=== PATIENT | male | born 1990 | race Caucasian/White ===

== ENCOUNTER 2017-02-05 18:32 | Emergency (ER) | payer OTHER ==
[~2017-02-05] VITALS: Wt 54.4 kg
[~2017-02-05 18:32] MED LIST: AMOXICILLIN500 M2 PO; AMOXICILLIN500 MG PO; ANAPROX DS550 MG PO; BACTRIM DS 8001 TA1 PO; CLINDAMYCIN HC300 MG PO; HYDROCODONE BIT1 T11 PO; KEFLEX500 MG PO; LIDOCAINE VISC100 ML MM; MEDROL DOSEPAK4 MG PO; MOTRIN800 MG PO; Motrin,Rufen800 MG PO; NAPROSYN500 MG PO; PEN-VEE K500 MG PO; PENICILLIN VK500 MG PO; PENICILLIN-VK500 MG PO; PREVACID SOLUTA30 MG PO; Peridex 473 ML473 ML PO; REMERON15 MG PO; ULTRAM50 MG PO; VALIUM10 MG PO; VICODIN 5/500 505 MG PO; VICODIN 500 MG-1 TAB PO; ZOFRAN ODT4 MG SL
[2017-02-05 18:58] VITALS: BP 114/82
[2017-02-05 19:52] LABS: BASO % 0.2 % (0.0-1.0); EOS % 0.3 % (1.0-4.0); HEMATOCRIT 46.3 % (42.0-52.0); HEMOGLOBIN 15.8 g/dl (14.0-18.0); LYMPH # 1.5 10*3/uL (1.3-4.4); MEAN CORPUSCULAR HGB 31.7 pg (27.0-31.0); MEAN CORPUSCULAR HGB CONC 34.1 g/dl (33.0-37.0); MEAN PLATELET VOLUME 11.9 fl (9.6-12.3); MONO # 0.9 10*3/uL (0.1-1.0); MONO % 6.6 % (3.0-9.0); NEUT % 81.7 % (47.0-73.0); PLATELET COUNT AUTOMATED 189 10*3/uL (130-400); RED BLOOD COUNT 4.98 10*6/uL (4.50-5.90); WHITE BLOOD COUNT 13.4 10*3/uL (4.8-10.8)
[2017-02-05 20:07] LABS: ALBUMIN 4.5 gm/dl (3.1-4.5); ALKALINE PHOSPHATASE 104 U/L (45-117); BUN 13 mg/dl (7-24); CHLORIDE 102 mmol/L (98-107); CREATININE 0.96 mg/dL (0.70-1.30); POTASSIUM 4.1 mmol/L (3.5-5.1); SGOT/AST 16 IU/L (3-35); SGPT/ALT 19 U/L (12-78); SODIUM 137 mmol/L (136-145); TOTAL PROTEIN 8.9 gm/dL (6.4-8.2)
[2017-02-05] MEDS ORDERED: Bactrim DS PO (20:15)
[2017-02-05] MEDS ORDERED: KEFLEX500 M1 PO (20:15)
[2017-02-05] MEDS ORDERED: NAPROSYN500 MG PO (20:15)
== END 2017-02-05 20:22 | disposition home or self-care (01) ==
LOC: ED 18:32
PROVIDERS: Nurse Practitioner Family
DX: L02.612 Cutaneous abscess of left foot (principal); E87.1 Hypo-osmolality and hyponatremia; F17.200 Nicotine dependence, unspecified, uncomplicated; F10.10 Alcohol abuse, uncomplicated; Z88.8 Allergy status to other drugs, medicaments and biological substances

== ENCOUNTER 2017-05-29 21:04 | Emergency (ER) | payer OTHER ==
[~2017-05-29] VITALS: Ht 172.7 cm; Wt 52.2 kg
[~2017-05-29 21:04] MED LIST changes: +Bactrim DS PO; +KEFLEX500 M1 PO
[2017-05-29 21:54] LABS: BASO % 0.2 % (0.0-1.0); EOS # 0.1 10*3/uL (0.0-0.4); EOS % 0.6 % (1.0-4.0); HEMATOCRIT 46.6 % (42.0-52.0); HEMOGLOBIN 15.6 g/dl (14.0-18.0); LYMPH # 1.5 10*3/uL (1.3-4.4); LYMPH % 15.8 % (27.0-41.0); MEAN CELL VOLUME 92.6 fl (80.0-94.0); MEAN CORPUSCULAR HGB CONC 33.5 g/dl (33.0-37.0); MEAN PLATELET VOLUME 11.4 fl (9.6-12.3); MONO # 0.9 10*3/uL (0.1-1.0); MONO % 9.2 % (3.0-9.0); NEUT # 7.2 10*3/uL (2.3-7.9); NEUT % 73.9 % (47.0-73.0); PLATELET COUNT AUTOMATED 209 10*3/uL (130-400); RED BLOOD COUNT 5.03 10*6/uL (4.50-5.90); RED CELL DISTRI WIDTH 13.8 % (0-14.5); WHITE BLOOD COUNT 9.7 10*3/uL (4.8-10.8)
[2017-05-29 22:29] LABS: ALKALINE PHOSPHATASE 100 U/L (45-117); BUN 10 mg/dl (7-24); CHLORIDE 103 mmol/L (98-107); CREATININE 0.97 mg/dL (0.70-1.30); POTASSIUM 3.8 mmol/L (3.5-5.1); SGOT/AST 20 IU/L (3-35); SGPT/ALT 24 U/L (12-78); SODIUM 139 mmol/L (136-145); TOTAL PROTEIN 8.2 gm/dL (6.4-8.2)
[2017-05-29 22:31] LABS: TROPONIN I < 0.015 ng/ml (<0.045)
[2017-05-29 23:22] VITALS: BP 138/76
== END 2017-05-30 01:07 | disposition left against medical advice (07) ==
LOC: ED 21:04
PROVIDERS: Nurse Practitioner Family
DX: M27.2 Inflammatory conditions of jaws (principal); R50.9 Fever, unspecified; F17.200 Nicotine dependence, unspecified, uncomplicated

== ENCOUNTER 2019-05-17 16:07 | Emergency (ER) | payer OTHER ==
[~2019-05-17] VITALS: Ht 167.6 cm; Wt 54.4 kg
[2019-05-17 17:09] LABS: URINE AMPHETAMINES < 1000 (1000ng/ml); URINE BARBITURATES < 200 (200ng/ml); URINE BENZODIAZEPINES > 200 (200ng/ml); URINE CANNABINOIDS (THC) > 50 (50ng/ml); URINE COCAINE < 300 (300ng/ml); URINE METHADONE < 300 (300ng/ml); URINE OPIATES < 300 (300ng/ml)
[2019-05-17 17:13] LABS: BASO % 0.2 % (0.0-1.0); EOS % 0.1 % (1.0-4.0); HEMATOCRIT 48.5 % (42.0-52.0); HEMOGLOBIN 16.6 g/dl (14.0-18.0); LYMPH # 1.4 10*3/uL (1.3-4.4); MEAN CORPUSCULAR HGB 31.5 pg (27.0-31.0); MEAN CORPUSCULAR HGB CONC 34.2 g/dl (33.0-37.0); MONO # 0.8 10*3/uL (0.1-1.0); MONO % 8.7 % (3.0-9.0); NEUT % 75.7 % (47.0-73.0); PLATELET COUNT AUTOMATED 195 10*3/uL (130-400); RED BLOOD COUNT 5.27 10*6/uL (4.50-5.90); RED CELL DISTRI WIDTH 13.3 % (0-14.5); WHITE BLOOD COUNT 9.3 10*3/uL (4.8-10.8)
[2019-05-17 17:13] LABS: URINE PHENCYCLIDINE < 25 (25ng/ml)
[2019-05-17 17:14] LABS: ALBUMIN 4.9 gm/dl (3.1-4.5); ALKALINE PHOSPHATASE 88 U/L (45-117); BUN 11 mg/dl (7-24); CHLORIDE 102 mmol/L (98-107); CREATININE 1.04 mg/dL (0.70-1.30); LIPASE 54 U/L (73-393); POTASSIUM 3.7 mmol/L (3.5-5.1); SGOT/AST 52 IU/L (3-35); SGPT/ALT 43 U/L (12-78); SODIUM 135 mmol/L (136-145); TOTAL PROTEIN 8.2 gm/dL (6.4-8.2)
[2019-05-17 17:17] LABS: BILIRUBIN 2+ (NEGATIVE); BLOOD TRACE-INTACT (NEGATIVE); CLARITY SL CLOUDY (CLEAR); COLOR YELLOW (YELLOW); GLUCOSE NEGATIVE (NEGATIVE); KETONE 3+ (NEGATIVE); LEUKO ESTERASE NEGATIVE (NEGATIVE); NITRITE NEGATIVE (NEGATIVE); UROBILINOGEN 0.2 E.U./dl (0.2-1.0)
[2019-05-17 17:18] LABS: BACTERIA 2+; MUCOUS 4+; RBC 0-2 rbc/hpf (0-2)
[2019-05-17 17:21] LABS: ACT PARTIAL THROMBO TIME 26.9 SECONDS (20.0-32.1); ETHYL ALCOHOL < 3.0 mg/dl (<3); TROPONIN I < 0.015 ng/ml (<0.045)
[2019-05-17 18:33] VITALS: BP 111/70
[2019-05-17] MEDS ORDERED: PREDNISONE20 M1 PO (18:34)
[2019-05-17] MEDS ORDERED: PROVENTIL HFA6.7 GM INH (18:34)
[2019-05-17] MEDS ORDERED: AVPAK AZITHROM250 MG PO (18:34)
== END 2019-05-17 18:52 | disposition home or self-care (01) ==
LOC: ED 16:07
PROVIDERS: Nurse Practitioner Family
DX: J20.9 Acute bronchitis, unspecified (principal); E86.0 Dehydration; R00.2 Palpitations; F12.90 Cannabis use, unspecified, uncomplicated; F17.200 Nicotine dependence, unspecified, uncomplicated; Z91.048 Other nonmedicinal substance allergy status

== ENCOUNTER 2019-05-24 01:23 | Emergency (ER) | payer OTHER ==
[~2019-05-24] VITALS: Ht 167.6 cm; Wt 54.4 kg
[~2019-05-24 01:23] MED LIST changes: +AVPAK AZITHROM250 MG PO; +PREDNISONE20 M1 PO; +PROVENTIL HFA6.7 GM INH
[2019-05-24 01:31] VITALS: BP 128/66
[2019-05-25] MEDS ORDERED: Motrin,Rufen800 MG PO (08:19)
[2019-05-25] MEDS ORDERED: ATIVAN1 MG PO (08:19)
== END 2019-05-24 02:06 | disposition home or self-care (01) ==
LOC: ED 01:23
DX: J20.9 Acute bronchitis, unspecified (principal); F17.200 Nicotine dependence, unspecified, uncomplicated; Z91.048 Other nonmedicinal substance allergy status; Z79.899 Other long term (current) drug therapy

== ENCOUNTER 2019-05-25 05:42 | Emergency (ER) | payer OTHER ==
[~2019-05-25] VITALS: Ht 167.6 cm; Wt 54.4 kg
[2019-05-25 05:50] VITALS: BP 122/81
[2019-05-25 06:25] LABS: BASO % 0.3 % (0.0-1.0); EOS # 0.1 10*3/uL (0.0-0.4); EOS % 0.8 % (1.0-4.0); HEMATOCRIT 46.6 % (42.0-52.0); HEMOGLOBIN 16.1 g/dl (14.0-18.0); LYMPH # 2.8 10*3/uL (1.3-4.4); LYMPH % 19.1 % (27.0-41.0); MEAN CELL VOLUME 93.8 fl (80.0-94.0); MEAN CORPUSCULAR HGB 32.4 pg (27.0-31.0); MEAN CORPUSCULAR HGB CONC 34.5 g/dl (33.0-37.0); NEUT # 10.6 10*3/uL (2.3-7.9); NEUT % 72.5 % (47.0-73.0); PLATELET COUNT AUTOMATED 189 10*3/uL (130-400); RED BLOOD COUNT 4.97 10*6/uL (4.50-5.90); RED CELL DISTRI WIDTH 13.8 % (0-14.5); WHITE BLOOD COUNT 14.6 10*3/uL (4.8-10.8)
[2019-05-25 06:37] LABS: BUN 6 mg/dl (7-24); CHLORIDE 106 mmol/L (98-107); CREATININE 0.91 mg/dL (0.70-1.30); POTASSIUM 3.5 mmol/L (3.5-5.1); SODIUM 139 mmol/L (136-145)
[2019-05-25 06:38] LABS: ACETAMINOPHEN (TYLENOL) < 5.0 ug/ml (10-30)
[2019-05-25 06:44] LABS: BILIRUBIN NEGATIVE (NEGATIVE); CLARITY SL CLOUDY (CLEAR); COLOR YELLOW (YELLOW); GLUCOSE NEGATIVE (NEGATIVE); KETONE NEGATIVE (NEGATIVE); SPECIFIC GRAVITY 1.015 (1.005-1.030)
[2019-05-25 06:45] LABS: BLOOD NEGATIVE (NEGATIVE); LEUKO ESTERASE NEGATIVE (NEGATIVE); NITRITE NEGATIVE (NEGATIVE); UROBILINOGEN 0.2 E.U./dl (0.2-1.0)
[2019-05-25 06:49] LABS: BACTERIA TRACE; EPITHELIAL CELLS 0-2; WBC 0-2 wbc/hpf (0-5)
[2019-05-25 06:50] LABS: MUCOUS 1+
[2019-05-25 06:55] LABS: URINE AMPHETAMINES < 1000 (1000ng/ml); URINE BARBITURATES < 200 (200ng/ml); URINE BENZODIAZEPINES > 200 (200ng/ml); URINE CANNABINOIDS (THC) > 50 (50ng/ml); URINE COCAINE < 300 (300ng/ml); URINE METHADONE < 300 (300ng/ml)
[2019-05-25 06:57] LABS: URINE OPIATES < 300 (300ng/ml)
[2019-05-25 07:17] LABS: URINE PHENCYCLIDINE < 25 (25ng/ml)
[2019-05-25] MEDS ORDERED: Motrin,Rufen800 MG PO (08:19)
[2019-05-25] MEDS ORDERED: ATIVAN1 MG PO (08:19)
== END 2019-05-25 08:23 | disposition home or self-care (01) ==
LOC: ED 05:42
PROVIDERS: Emergency Medicine
DX: R09.1 Pleurisy (principal); F41.9 Anxiety disorder, unspecified; F32.9 Major depressive disorder, single episode, unspecified; F17.200 Nicotine dependence, unspecified, uncomplicated; Z91.048 Other nonmedicinal substance allergy status; Z79.2 Long term (current) use of antibiotics; Z79.899 Other long term (current) drug therapy

== ENCOUNTER 2019-06-05 15:07 | Emergency (ER) | payer OTHER ==
[~2019-06-05] VITALS: Wt 68.0 kg
[~2019-06-05 15:07] MED LIST changes: +ATIVAN1 MG PO
[2019-06-05 15:19] VITALS: BP 125/100
[2019-06-05 16:11] LABS: BASO % 0.2 % (0.0-1.0); EOS % 0.2 % (1.0-4.0); HEMATOCRIT 45.4 % (42.0-52.0); HEMOGLOBIN 15.3 g/dl (14.0-18.0); LYMPH % 11.8 % (27.0-41.0); MEAN CELL VOLUME 95.6 fl (80.0-94.0); MEAN CORPUSCULAR HGB 32.2 pg (27.0-31.0); MEAN CORPUSCULAR HGB CONC 33.7 g/dl (33.0-37.0); MEAN PLATELET VOLUME 11.1 fl (9.6-12.3); MONO # 0.5 10*3/uL (0.1-1.0); MONO % 5.8 % (3.0-9.0); NEUT % 81.8 % (47.0-73.0); PLATELET COUNT AUTOMATED 164 10*3/uL (130-400); RED BLOOD COUNT 4.75 10*6/uL (4.50-5.90); RED CELL DISTRI WIDTH 14.1 % (0-14.5); WHITE BLOOD COUNT 8.6 10*3/uL (4.8-10.8)
[2019-06-05 16:14] LABS: BILIRUBIN 1+ (NEGATIVE); BLOOD NEGATIVE (NEGATIVE); CLARITY CLEAR (CLEAR); COLOR YELLOW (YELLOW); GLUCOSE NEGATIVE (NEGATIVE); KETONE 2+ (NEGATIVE); LEUKO ESTERASE NEGATIVE (NEGATIVE); NITRITE NEGATIVE (NEGATIVE); UROBILINOGEN 0.2 E.U./dl (0.2-1.0)
[2019-06-05 16:18] LABS: EPITHELIAL CELLS 0-2
[2019-06-05 16:22] LABS: ACT PARTIAL THROMBO TIME 27.6 SECONDS (20.0-32.1)
[2019-06-05 16:25] LABS: ALBUMIN 4.2 gm/dl (3.1-4.5); ALKALINE PHOSPHATASE 88 U/L (45-117); BUN 9 mg/dl (7-24); CHLORIDE 106 mmol/L (98-107); CREATININE 0.91 mg/dL (0.70-1.30); LIPASE 75 U/L (73-393); POTASSIUM 4.1 mmol/L (3.5-5.1); SGOT/AST 34 IU/L (3-35); SGPT/ALT 35 U/L (12-78); SODIUM 139 mmol/L (136-145); TOTAL PROTEIN 7.3 gm/dL (6.4-8.2)
[2019-06-05 16:27] LABS: URINE AMPHETAMINES < 1000 (1000ng/ml); URINE BARBITURATES < 200 (200ng/ml); URINE BENZODIAZEPINES < 200 (200ng/ml); URINE COCAINE < 300 (300ng/ml)
[2019-06-05 16:32] LABS: URINE CANNABINOIDS (THC) > 50 (50ng/ml); URINE METHADONE < 300 (300ng/ml); URINE OPIATES < 300 (300ng/ml)
[2019-06-05 16:38] LABS: ACETAMINOPHEN (TYLENOL) < 5.0 ug/ml (10-30); ETHYL ALCOHOL < 3.0 mg/dl (<3); TROPONIN I < 0.015 ng/ml (<0.045)
[2019-06-05 16:38] LABS: URINE PHENCYCLIDINE < 25 (25ng/ml)
[2019-06-05] MEDS ORDERED: PREDNISONE10 MG PO (18:04)
[2019-06-05] MEDS ORDERED: MUCINEX1200 M1 PO (18:04)
[2019-06-05] MEDS ORDERED: DOXYCYCLINE100 M3 PO (18:04)
== END 2019-06-05 18:13 | disposition home or self-care (01) ==
LOC: ED 15:07
PROVIDERS: Family Medicine
DX: J40 Bronchitis, not specified as acute or chronic (principal); F12.90 Cannabis use, unspecified, uncomplicated; F17.200 Nicotine dependence, unspecified, uncomplicated; Z91.048 Other nonmedicinal substance allergy status; Z79.899 Other long term (current) drug therapy

== ENCOUNTER 2019-06-06 13:00 | Emergency (ER) | payer OTHER ==
[~2019-06-06] VITALS: Ht 167.6 cm; Wt 54.4 kg
[~2019-06-06 13:00] MED LIST changes: +DOXYCYCLINE100 M3 PO; +MUCINEX1200 M1 PO; +PREDNISONE10 MG PO
[2019-06-06 13:34] LABS: BILIRUBIN NEGATIVE (NEGATIVE); BLOOD NEGATIVE (NEGATIVE); CLARITY CLOUDY (CLEAR); COLOR YELLOW (YELLOW); GLUCOSE NEGATIVE (NEGATIVE); KETONE 2+ (NEGATIVE); NITRITE NEGATIVE (NEGATIVE); UROBILINOGEN 0.2 E.U./dl (0.2-1.0)
[2019-06-06 13:35] LABS: LEUKO ESTERASE NEGATIVE (NEGATIVE)
[2019-06-06 13:36] LABS: MUCOUS 2+
[2019-06-06 13:38] LABS: BACTERIA 1+
[2019-06-06 13:53] LABS: BASO % 0.4 % (0.0-1.0); EOS % 0.1 % (1.0-4.0); HEMATOCRIT 47.8 % (42.0-52.0); MEAN CELL VOLUME 95.6 fl (80.0-94.0); MEAN CORPUSCULAR HGB CONC 33.5 g/dl (33.0-37.0); MEAN PLATELET VOLUME 11.2 fl (9.6-12.3); MONO # 0.6 10*3/uL (0.1-1.0); MONO % 5.1 % (3.0-9.0); NEUT # 9.5 10*3/uL (2.3-7.9); NEUT % 85.1 % (47.0-73.0); PLATELET COUNT AUTOMATED 179 10*3/uL (130-400); WHITE BLOOD COUNT 11.2 10*3/uL (4.8-10.8)
[2019-06-06 14:05] LABS: ALBUMIN 4.8 gm/dl (3.1-4.5); ALKALINE PHOSPHATASE 96 U/L (45-117); BUN 11 mg/dl (7-24); CHLORIDE 102 mmol/L (98-107); POTASSIUM 4.3 mmol/L (3.5-5.1); SGOT/AST 34 IU/L (3-35); SGPT/ALT 35 U/L (12-78); SODIUM 135 mmol/L (136-145); TOTAL PROTEIN 8.1 gm/dL (6.4-8.2)
[2019-06-06 16:17] VITALS: BP 116/64
== END 2019-06-06 16:17 | disposition home or self-care (01) ==
LOC: ED 13:00
PROVIDERS: Nurse Practitioner Family
DX: R10.13 Epigastric pain (principal); Z87.891 Personal history of nicotine dependence

== ENCOUNTER 2019-06-15 11:03 | Inpatient (IN) | payer OTHER ==
[~2019-06-15] VITALS: Ht 1737 cm; Wt 49.2 kg
--- NOTE | 2019-06-15 12:25 | NUR ---
PATIENT MEETS [facility]. CIWA =17. PATIENT IS WANTING TO FOLLOW UP WITH [facility] FOR HIS AFTERCARE PLAN. SAMY TINOCO B.A. OIL SPOT WASHER
[2019-06-15 12:33] VITALS: BP 119/82
[2019-06-15 12:42] LABS: BASO # 0.1 10*3/uL (0.0-0.1); BASO % 0.4 % (0.0-1.0); EOS # 0.1 10*3/uL (0.0-0.4); EOS % 0.9 % (1.0-4.0); HEMATOCRIT 45.9 % (42.0-52.0); HEMOGLOBIN 15.5 g/dl (14.0-18.0); LYMPH # 1.9 10*3/uL (1.3-4.4); LYMPH % 15.8 % (27.0-41.0); MEAN CELL VOLUME 96.2 fl (80.0-94.0); MEAN CORPUSCULAR HGB 32.5 pg (27.0-31.0); MEAN CORPUSCULAR HGB CONC 33.8 g/dl (33.0-37.0); MEAN PLATELET VOLUME 10.8 fl (9.6-12.3); MONO # 0.7 10*3/uL (0.1-1.0); MONO % 5.5 % (3.0-9.0); NEUT # 9.1 10*3/uL (2.3-7.9); NEUT % 77.2 % (47.0-73.0); PLATELET COUNT AUTOMATED 187 10*3/uL (130-400); RED BLOOD COUNT 4.77 10*6/uL (4.50-5.90); RED CELL DISTRI WIDTH 14.2 % (0-14.5); WHITE BLOOD COUNT 11.7 10*3/uL (4.8-10.8)
--- NOTE | 2019-06-15 12:44 | NUR ---
[facility] , under the services of MICHAEL Eubanks DO with a diagnosis of SUBSTANCE ABUSE. Chief complaint is DENIES C/O. Patient arrived via bed from CT. Monitor applied. Initial assessment completed. Vital signs taken and recorded. MICHAEL EUBANKS DO notified of admission to the unit. Orders received. See assessment for past medical history, medications and allergies. Patient and/or family oriented to unit. [facility] visitation policy reviewed. Clothing/patient valuable form completed. JACOBO CHAKRABORTY
[2019-06-15 12:52] LABS: INTERNATIONAL NORM RATIO 0.9 (2.0-3.5)
[2019-06-15 12:57] LABS: ALBUMIN 4.3 gm/dl (3.1-4.5); ALKALINE PHOSPHATASE 77 U/L (45-117); BUN 9 mg/dl (7-24); CHLORIDE 106 mmol/L (98-107); CREATININE 0.75 mg/dL (0.70-1.30); SGOT/AST 21 IU/L (3-35); SGPT/ALT 27 U/L (12-78); SODIUM 138 mmol/L (136-145); TOTAL PROTEIN 7.4 gm/dL (6.4-8.2)
[2019-06-15 13:04] LABS: BILIRUBIN NEGATIVE (NEGATIVE); BLOOD NEGATIVE (NEGATIVE); CLARITY SL CLOUDY (CLEAR); COLOR YELLOW (YELLOW); GLUCOSE NEGATIVE (NEGATIVE); KETONE 1+ (NEGATIVE); LEUKO ESTERASE NEGATIVE (NEGATIVE); NITRITE NEGATIVE (NEGATIVE); UROBILINOGEN 0.2 E.U./dl (0.2-1.0)
[2019-06-15 13:10] LABS: URINE AMPHETAMINES < 1000 (1000ng/ml); URINE BARBITURATES < 200 (200ng/ml); URINE BENZODIAZEPINES < 200 (200ng/ml); URINE CANNABINOIDS (THC) > 50 (50ng/ml); URINE COCAINE < 300 (300ng/ml); URINE METHADONE < 300 (300ng/ml); URINE OPIATES < 300 (300ng/ml); URINE PHENCYCLIDINE < 25 (25ng/ml)
[2019-06-15 13:15] LABS: MUCOUS TRACE
[2019-06-15 16:00] VITALS: BP 134/69
[2019-06-15 20:00] VITALS: BP 115/76
--- NOTE | 2019-06-15 20:05 | NUR ---
MEDICATED WITH PRN MOTRIN FOR C/O GENERALIZED PAIN. MEDICATED WITH PRN ATIVAN FOR ANXIOUSNESS. PATIENT WALKING AND PACING AROUND ROOM. STATES HE IS VERY ANXIOUS AND CANNOT SIT STILL. REMINDED TO NOT LEAVE THE FLOOR. BED IN LOWEST POSITION, CALL LIGHT IN REACH
[2019-06-16] VITALS: BP 133/79
[2019-06-16 08:00] VITALS: BP 110/67; BP 124/72
--- NOTE | 2019-06-16 08:10 | NUR ---
NOTIFIED DR. SANTANA OF PT'S HEART RATE.
[2019-06-16 12:00] VITALS: BP 112/76
--- NOTE | 2019-06-16 12:23 | NUR ---
patient is a [facility] for [facility]. he denies any medical needs upon dc.
[2019-06-16 14:00] VITALS: BP 112/76
[2019-06-16 16:00] VITALS: BP 103/69
[2019-06-16 20:00] VITALS: BP 114/80
--- NOTE | 2019-06-16 20:07 | NUR ---
PATIENT IS WALKING AROUND IN ROOM WITH EASY AND REGULAR RESPERS ON ROOM AIR. ASSESSMENT IS COMPLETE WITH NO S/S OF DISTRESS NOTED AT THIS TIME. PATIENT C/O ANXIETY AND IS REQUESTING SOMETHING FOR IT. CALL LIGHT IS WITHIN REACH WILL CONTINUE TO MONITOR.
[2019-06-17] VITALS: BP 126/69
[2019-06-17 08:00] VITALS: BP 127/73
--- NOTE | 2019-06-17 08:24 | NUR ---
MEDICATED WITH ROBAXIN AND ATIVAN PER ORDERS AND REQUEST. PATIENT ANXIOUS PACING.
--- NOTE | 2019-06-17 09:30 | NUR ---
ROBAXIN AND ATIVAN GIVEN EARLIER EFFECTIVE.
[2019-06-17 12:00] VITALS: BP 124/62
[2019-06-17 16:00] VITALS: BP 93/59
--- NOTE | 2019-06-17 19:30 | NUR ---
PT ANXIOUS AND PACING. PT REQUESTING SOMETHING FOR ANXIETY. ASESSMENT COMPLETE. NO OTHER COMPLAINTS AT THIS TIME. CALL LIGHT WITHIN REACH. WILL MEDICATED AND MONITOR.
--- NOTE | 2019-06-17 19:37 | NUR ---
MEDICATED WITH PRN ATIVAN AND ROBAXIN PER ORDERS AND PT REQUEST. WILL CHECK EFFECTIVENESS. CALL LIGHT WITHIN REACH.
[2019-06-17 20:00] VITALS: BP 118/76
--- NOTE | 2019-06-17 20:40 | NUR ---
EARLIER ATIVAN AND AND ROBAXIN EFFECTIVE.
[2019-06-18] VITALS: BP 110/80
--- NOTE | 2019-06-18 01:59 | NUR ---
PATIENT ANXIOUS AND PACING. IV ATIVAN GIVEN PER REQUEST AND PER ORDER. WILL CHECK EFFECTIVENESS. CALL LIGHT WITHIN REACH.
--- NOTE | 2019-06-18 02:17 | NUR ---
PT MEDICATED WITH PRN ROBAXIN PER REQUEST FOR MUSCLE SPASMS. WILL CHECK EFFECTIVENES. CALL LIGHT WITHIN REACH.
--- NOTE | 2019-06-18 03:18 | NUR ---
24 HR chart check completed.
--- NOTE | 2019-06-18 03:22 | NUR ---
EARLIER ATIVAN AND ROBAXIN WERE EFFECTIVE. WILL CONTINUE TO MONITOR.
--- NOTE | 2019-06-18 04:53 | NUR ---
PTS NICOTINE PATCH REMOVED AT THIS TIME. PT STATED IT ISN'T WORKING FOR HIM AND IS REQUESTING IN THE NICOTROL INHALER INSTEAD. EXPLAINED TO PT HE CAN'T HAVE BOTH AND THAT HE NEED TO PICK ONE OR THE OTHER.
--- NOTE | 2019-06-18 07:30 | NUR ---
TOOK OVER CARE OF PT AT THIS TIME.PT RESTING IN BED. RESPRIATIONS EASY AND UNLABORED WITH NO S/S OF DISTRESS NOTED. WILL CONTINUE TO MONITOR. CALL LIGHT IN REACH.
[2019-06-18 08:00] VITALS: BP 123/98
--- NOTE | 2019-06-18 08:41 | NUR ---
PT REFUSING TO WEAR [employer] AT THIS TIME. WILL NOTIFY PHYSICIAN AND [employer] TEACHER TECH.
--- NOTE | 2019-06-18 10:46 | NUR ---
PT CONCERNED ABOUT HIS RIDE HOME VIA INSURANCE. SAMY NISHANT [facility] NOTIFIED AND STATES THAT SHE HAS NOT SET UP THE RIDE YET BUT WHEN SHE DOES, SHE WILL NOTIFY THIS NURSE.
[2019-06-18] MEDS ORDERED: NATURE'S BLEND F1 MG PO (11:20)
[2019-06-18] MEDS ORDERED: ATARAX,VISTARIL50 MG PO (11:20)
[2019-06-18] MEDS ORDERED: VITAMIN B-1100 M1 PO (11:20)
--- NOTE | 2019-06-18 12:10 | NUR ---
Discharge instructions reviewed with patient/family. Patient receptive and verbalizes understanding. Follow-up care arranged. Written instructions given to patient/family. NADIYA ECHOLS
--- NOTE | 2019-06-18 12:18 | NUR ---
Attempted to reach patient with his appt time change for Nancy Damon. Voicemail left.
== END 2019-06-18 12:53 | disposition home or self-care (01) | DRG 775 ==
LOC: 4E 11:03
PROVIDERS: Student in an Organized Health Care Education/Training Program; ADMIT Emergency Medicine
DX: F10.230 Alcohol dependence with withdrawal, uncomplicated (principal); R63.6 Underweight; R00.1 Bradycardia, unspecified; F12.929 Cannabis use, unspecified with intoxication, unspecified; D72.825 Bandemia; D75.89 Other specified diseases of blood and blood-forming organs; R82.4 Acetonuria; F12.90 Cannabis use, unspecified, uncomplicated; F41.9 Anxiety disorder, unspecified; F17.210 Nicotine dependence, cigarettes, uncomplicated; Z71.6 Tobacco abuse counseling; Z81.1 Family history of alcohol abuse and dependence; Z83.79 Family history of other diseases of the digestive system; Z68.1 Body mass index [BMI] 19.9 or less, adult

== ENCOUNTER → 2019-09-13 | Day surgery (SDC) | payer OTHER ==
[~2019-09-13] VITALS: Ht 165.1 cm; Wt 54.4 kg
[~2019-09-13] MED LIST changes: +ATARAX,VISTARIL50 MG PO; +AUGMENTIN 875875 MG PO; +CHANTIX1 M1 PO; +NATURE'S BLEND F1 MG PO; +NORCO 5-325 TA1 EACH PO; +VITAMIN B-1100 M1 PO
[2019-09-13 10:39] LABS: BASO # 0.1 10*3/uL (0.0-0.1); BASO % 0.3 % (0.0-1.0); EOS # 0.1 10*3/uL (0.0-0.4); EOS % 0.5 % (1.0-4.0); LYMPH # 2.1 10*3/uL (1.3-4.4); LYMPH % 13.7 % (27.0-41.0); MEAN CELL VOLUME 91.7 fl (80.0-94.0); MEAN CORPUSCULAR HGB 32.1 pg (27.0-31.0); MONO # 1.1 10*3/uL (0.1-1.0); MONO % 7.4 % (3.0-9.0); NEUT # 11.9 10*3/uL (2.3-7.9); NEUT % 77.8 % (47.0-73.0); PLATELET COUNT AUTOMATED 183 10*3/uL (130-400); RED CELL DISTRI WIDTH 12.6 % (0-14.5); WHITE BLOOD COUNT 15.3 10*3/uL (4.8-10.8)
[2019-09-13 10:54] LABS: BUN 9 mg/dl (7-24); CHLORIDE 103 mmol/L (98-107); CREATININE 0.78 mg/dL (0.70-1.30); POTASSIUM 3.4 mmol/L (3.5-5.1); SODIUM 135 mmol/L (136-145)
[2019-09-13 11:34] VITALS: BP 128/74
--- NOTE | 2019-09-13 11:35 | NUR ---
COVID TEST PER [facility], [id number] EXP 2021-06 BOTH IGG AND IGM NEGATIVE
[2019-09-13 13:45] VITALS: BP 109/62
[2019-09-13 14:00] VITALS: BP 107/61
[2019-09-13 14:17] VITALS: BP 108/61
[2019-09-13 14:31] VITALS: BP 109/62
[2019-09-13 14:44] VITALS: BP 106/68
== END | disposition home or self-care (01) ==
LOC: ED 07:29 → SDC 13:46
PROVIDERS: Emergency Medicine
DX: L02.01 Cutaneous abscess of face (principal); F41.9 Anxiety disorder, unspecified; F32.9 Major depressive disorder, single episode, unspecified; K21.9 Gastro-esophageal reflux disease without esophagitis; Z87.891 Personal history of nicotine dependence

== ENCOUNTER 2019-11-26 08:38 | Emergency (ER) | payer OTHER ==
[~2019-11-26] VITALS: Ht 175.2 cm; Wt 54.4 kg
[2019-11-26 08:44] VITALS: BP 117/77
[2019-11-26] MEDS ORDERED: CLINDAMYCIN150 MG PO (09:14)
== END 2019-11-26 09:16 | disposition home or self-care (01) ==
LOC: ED 08:38
DX: K04.7 Periapical abscess without sinus (principal); F32.9 Major depressive disorder, single episode, unspecified; F41.9 Anxiety disorder, unspecified; F17.200 Nicotine dependence, unspecified, uncomplicated; Z88.8 Allergy status to other drugs, medicaments and biological substances; Z79.899 Other long term (current) drug therapy

== ENCOUNTER 2019-12-11 00:41 | Inpatient (IN) | payer OTHER ==
[~2019-12-11] VITALS: Ht 177.8 cm; Wt 53.2 kg
[2019-12-11] VITALS (7 sets, daily range): BP systolic 120–144; BP diastolic 64–84
[~2019-12-11 00:41] MED LIST changes: +CLINDAMYCIN150 MG PO
[2019-12-11 01:44] LABS: BASO % 0.2 % (0.0-1.0); EOS # 0.1 10*3/uL (0.0-0.4); EOS % 0.4 % (1.0-4.0); HEMATOCRIT 46.5 % (42.0-52.0); LYMPH # 1.7 10*3/uL (1.3-4.4); LYMPH % 12.5 % (27.0-41.0); MEAN CELL VOLUME 91.4 fl (80.0-94.0); MEAN CORPUSCULAR HGB 31.2 pg (27.0-31.0); MEAN CORPUSCULAR HGB CONC 34.2 g/dl (33.0-37.0); MEAN PLATELET VOLUME 11.3 fl (9.6-12.3); MONO # 0.6 10*3/uL (0.1-1.0); MONO % 4.4 % (3.0-9.0); NEUT # 10.9 10*3/uL (2.3-7.9); NEUT % 82.3 % (47.0-73.0); PLATELET COUNT AUTOMATED 180 10*3/uL (130-400); RED BLOOD COUNT 5.09 10*6/uL (4.50-5.90); RED CELL DISTRI WIDTH 12.8 % (0-14.5); WHITE BLOOD COUNT 13.2 10*3/uL (4.8-10.8)
[2019-12-11 02:00] LABS: ALBUMIN 4.7 gm/dl (3.1-4.5); ALKALINE PHOSPHATASE 99 U/L (45-117); BUN 9 mg/dl (7-24); CHLORIDE 103 mmol/L (98-107); CREATININE 0.85 mg/dL (0.70-1.30); POTASSIUM 3.5 mmol/L (3.5-5.1); SGOT/AST 22 IU/L (3-35); SGPT/ALT 29 U/L (12-78); SODIUM 138 mmol/L (136-145); TOTAL PROTEIN 8.8 gm/dL (6.4-8.2)
--- NOTE | 2019-12-11 04:20 | NUR ---
LEFT JAW SWELLING NOTED. NOTHING OPEN AT THIS TIME NO WOUND PHOTOS TAKEN
--- NOTE | 2019-12-11 04:40 | NUR ---
A 29, admitted to 5E, under the services of DAVID Santos DO with a diagnosis of FACIAL ABSCESS, FACIAL CELLULITIS, DENTAL ABSCESS. Chief complaint is TOOTHACHE. Patient arrived via wheel chair from ER. Monitor applied. Initial assessment completed. Vital signs taken and recorded. DAVID SANTOS DO notified of admission to the unit. Orders received. See assessment for past medical history, medications and allergies. Patient and/or family oriented to unit. [facility] visitation policy reviewed. Clothing/patient valuable form completed. EPI ALEX
--- NOTE | 2019-12-11 05:35 | NUR ---
MED REC UP TO DATE PER PT. STATES HE TAKES NO HOME MEDS.
[2019-12-11 05:56] LABS: BASO % 0.2 % (0.0-1.0); EOS # 0.1 10*3/uL (0.0-0.4); EOS % 0.6 % (1.0-4.0); HEMATOCRIT 50.2 % (42.0-52.0); LYMPH # 2.2 10*3/uL (1.3-4.4); LYMPH % 17.4 % (27.0-41.0); MEAN CELL VOLUME 91.6 fl (80.0-94.0); MEAN CORPUSCULAR HGB 30.5 pg (27.0-31.0); MEAN CORPUSCULAR HGB CONC 33.3 g/dl (33.0-37.0); MEAN PLATELET VOLUME 11.5 fl (9.6-12.3); MONO # 0.5 10*3/uL (0.1-1.0); NEUT # 9.6 10*3/uL (2.3-7.9); NEUT % 77.6 % (47.0-73.0); PLATELET COUNT AUTOMATED 212 10*3/uL (130-400); RED BLOOD COUNT 5.48 10*6/uL (4.50-5.90); WHITE BLOOD COUNT 12.4 10*3/uL (4.8-10.8)
[2019-12-11 06:02] LABS: BUN 8 mg/dl (7-24); CHLORIDE 105 mmol/L (98-107); CREATININE 0.86 mg/dL (0.70-1.30); POTASSIUM 4.1 mmol/L (3.5-5.1); SODIUM 139 mmol/L (136-145)
--- NOTE | 2019-12-11 06:29 | NUR ---
NOTIFIED OF PATIENT'S C/O ANXIETY. STATES TO GIVEN ORDERED LIBRIUM NOW. ORDERED LIBRIUM NOT PROFILED TO START UNTIL 1200 TODAY. [facility] CALLED TO ADJUST TIME.
--- NOTE | 2019-12-11 06:45 | NUR ---
CARDINAL UNABLE TO REPROFILE MEDICATION TIMES. WILL WAIT FOR [facility] TO GET HERE AND CALL THEM TO DO SO.
--- NOTE | 2019-12-11 06:50 | NUR ---
ATTEMPTED TO CALL 'S CELL PHONE REGARDING CONSULT. NO ANSWER. BRIEF MESSAGE WITH CALL BACK NUMBER LEFT.
--- NOTE | 2019-12-11 07:10 | NUR ---
[facility] NOTIFIED OF LIBRIUM TAPER TIME NEEDING CHANGED. WILL ADJUST TIMES.
--- NOTE | 2019-12-11 15:26 | NUR ---
NORCO GIVEN FOR C/O PAIN LT JAW. 6/10 ON PAIN SCALE. WILL MONITOR.
--- NOTE | 2019-12-11 16:30 | NUR ---
JOSÉ LUIS EFFECTIVE PER PT.
--- NOTE | 2019-12-11 19:19 | NUR ---
RN INTO PT'S ROOM AT THIS TIME. ROOM SMELLS OF CIGARETTE SMOKE. RN ASKED FOR PATIENT'S CIGARETTES. PT DENIES HAVING ANY. RN EDUCATED PATIENT AGAIN ABOUT HOSPITAL SMOKING POLICY AND WARNED ABOUT DANGERS OF SMOKING WITH OXYGEN. RN AGAIN ASKED FOR CIGARETTES, PT AGAIN DENIES HAVING THEM. RN OFFERED TO CALL FOR NICOTROL INHALERS. PT AGREES. NOTIFIED OF SITUATION & PT REQUESTING INHALERS. NEW ORDER RECEIVED.
[2019-12-12] VITALS (11 sets, daily range): BP systolic 90–130; BP diastolic 48–86
--- NOTE | 2019-12-12 00:11 | NUR ---
0002 IV MORPHINE GIVEN FOR L SIDED FACE/JAW PAIN RATED 5/10. WILL MONITOR. CALL LIGHT IN REACH. 0011SCHEDULED PO LIBRIUM GIVEN PER ORDER.
--- NOTE | 2019-12-12 00:11 | NUR ---
0002 IV MORPHINE GIVEN FOR L SIDED FACE/JAW PAIN RATED 5/10. WILL MONITOR. CALL LIGHT IN REACH.
--- NOTE | 2019-12-12 01:00 | NUR ---
EARLIER MEDS EFFECTIVE PER PT
--- NOTE | 2019-12-12 05:55 | NUR ---
PT SLEEPING AT THIS TIME. WILL MONITOR.
[2019-12-12 06:29] LABS: BASO % 0.2 % (0.0-1.0); EOS # 0.1 10*3/uL (0.0-0.4); EOS % 1.5 % (1.0-4.0); HEMATOCRIT 40.2 % (42.0-52.0); LYMPH % 21.4 % (27.0-41.0); MEAN CELL VOLUME 92.6 fl (80.0-94.0); MEAN CORPUSCULAR HGB 31.6 pg (27.0-31.0); MEAN CORPUSCULAR HGB CONC 34.1 g/dl (33.0-37.0); MEAN PLATELET VOLUME 11.6 fl (9.6-12.3); MONO # 0.8 10*3/uL (0.1-1.0); MONO % 8.9 % (3.0-9.0); NEUT # 6.3 10*3/uL (2.3-7.9); NEUT % 67.7 % (47.0-73.0); PLATELET COUNT AUTOMATED 178 10*3/uL (130-400); RED BLOOD COUNT 4.34 10*6/uL (4.50-5.90); RED CELL DISTRI WIDTH 13.2 % (0-14.5); WHITE BLOOD COUNT 9.4 10*3/uL (4.8-10.8)
[2019-12-12 06:54] LABS: BUN 8 mg/dl (7-24); CHLORIDE 106 mmol/L (98-107); CREATININE 0.79 mg/dL (0.70-1.30); POTASSIUM 4.2 mmol/L (3.5-5.1); SODIUM 140 mmol/L (136-145)
--- NOTE | 2019-12-12 09:00 | NUR ---
Practice Representative in to talk to patient. Patient states lives at home with his mother and his little brother. There are 12 steps in the home. Physician: no family physician [facility]acy: [facility] Home health services: none Patient's level of ADLs: INDEPENDENT Patient has working utilities: yes DME: none Follow-up physician's appointment after d/c: will be made by the hospitalist nurse director upon discharge Does patient want to access PORTAL?: no Discharge plan discussed with patient. He is up ambulating in his room. He lives at home with his mother and little brother. He states he doesn't drive as his license is suspended and his mother doesn't drive either so he walks to wherever he needs to go. He is independent in his ADLs and ambulation. Discussed home health care services and he declines. CM will continue to follow for any discharge planning needs. When medically stable he will be discharged to home. He states he will walk home as he has no one to pick him up. He would like to see if Dr. Padilla's office takes his insurance. Will reach out to Dr. Padilla's office. ETHAN GARG
--- NOTE | 2019-12-12 09:54 | NUR ---
PT C/O OF INCREASING PAIN PRN MORPHINE GIVEN FOR 8/10 PAIN
--- NOTE | 2019-12-12 10:40 | NUR ---
PT REPORTS PRN PAIN MEDICATION EFFECTIVE 3/10 PAIN
--- NOTE | 2019-12-12 10:56 | NUR ---
PT LEFT FLOOR FOR OR
--- NOTE | 2019-12-12 11:13 | NUR ---
Dr. Padilla's office doesn't take [employer]. Hospitalist nurse director notified.
--- NOTE | 2019-12-12 14:07 | NUR ---
DR. PUGA NOTIFIED THAT PT CAN BE DISCHARGED LATER TODAY FROM DR. [facility].
[2019-12-12] MEDS ORDERED: PENICILLIN-VK500 M1 PO (17:04)
[2019-12-12] MEDS ORDERED: VITAMIN D350 MC2 PO (17:04)
--- NOTE | 2019-12-12 17:59 | NUR ---
IV'S REMOVED, SMOKING CESSATION PROVIDED, PT DISCHARGED HOME OF CARE OF SELF
== END 2019-12-12 18:22 | disposition home or self-care (01) | DRG 720 ==
LOC: ED 00:41 → 5E 03:51 → EDHOLD 03:51 → 5E 04:15
PROVIDERS: Internal Medicine; Student in an Organized Health Care Education/Training Program; ADMIT Internal Medicine; ATTEND Internal Medicine
PROC: 0CDXXZ0 Extraction of Lower Tooth, Single, External Approach (ICD-10-PCS; principal; 2019-12-12)
DX: A41.9 Sepsis, unspecified organism (principal); R65.20 Severe sepsis without septic shock; K04.7 Periapical abscess without sinus; L03.211 Cellulitis of face; D72.810 Lymphocytopenia; L02.01 Cutaneous abscess of face; M27.2 Inflammatory conditions of jaws; F10.10 Alcohol abuse, uncomplicated; F17.210 Nicotine dependence, cigarettes, uncomplicated; F12.10 Cannabis abuse, uncomplicated; J30.2 Other seasonal allergic rhinitis; F41.9 Anxiety disorder, unspecified; Z81.1 Family history of alcohol abuse and dependence; Z83.79 Family history of other diseases of the digestive system; Z71.6 Tobacco abuse counseling; Z79.899 Other long term (current) drug therapy

== ENCOUNTER 2020-03-24 07:46 | Emergency (ER) | payer OTHER ==
[~2020-03-24] VITALS: Ht 175.2 cm; Wt 52.2 kg
[~2020-03-24 07:46] MED LIST changes: +PENICILLIN-VK500 M1 PO; +VITAMIN D350 MC2 PO
[2020-03-24 07:52] VITALS: BP 137/67
[2020-03-24] MEDS ORDERED: Motrin,Rufen800 MG PO (10:43)
== END 2020-03-24 10:46 | disposition home or self-care (01) ==
LOC: ED 07:46
DX: S05.01XA Injury of conjunctiva and corneal abrasion without foreign body, right eye, initial encounter (principal); Z87.891 Personal history of nicotine dependence; X58.XXXA Exposure to other specified factors, initial encounter; Y93.89 Activity, other specified; Y92.89 Other specified places as the place of occurrence of the external cause; Y99.8 Other external cause status

== ENCOUNTER 2020-04-14 11:48 | Emergency (ER) | payer OTHER ==
[~2020-04-14] VITALS: Wt 54.4 kg
[2020-04-14 12:05] VITALS: BP 140/88
== END 2020-04-14 13:08 | disposition left against medical advice (07) ==
LOC: ED 11:48
DX: R06.89 Other abnormalities of breathing (principal); Z53.21 Procedure and treatment not carried out due to patient leaving prior to being seen by health care provider

== ENCOUNTER 2020-04-15 12:07 | Emergency (ER) | payer OTHER ==
[~2020-04-15] VITALS: Wt 54.4 kg
[2020-04-15 12:58] LABS: BASO % 0.4 % (0.0-1.0); EOS # 0.1 10*3/uL (0.0-0.4); EOS % 0.9 % (1.0-4.0); HEMATOCRIT 45.6 % (42.0-52.0); LYMPH # 1.6 10*3/uL (1.3-4.4); LYMPH % 21.3 % (27.0-41.0); MEAN CORPUSCULAR HGB 31.5 pg (27.0-31.0); MEAN CORPUSCULAR HGB CONC 34.6 g/dl (33.0-37.0); MEAN PLATELET VOLUME 10.6 fl (9.6-12.3); MONO # 0.7 10*3/uL (0.1-1.0); MONO % 8.8 % (3.0-9.0); NEUT # 5.1 10*3/uL (2.3-7.9); NEUT % 68.5 % (47.0-73.0); PLATELET COUNT AUTOMATED 186 10*3/uL (130-400); RED BLOOD COUNT 5.01 10*6/uL (4.50-5.90); RED CELL DISTRI WIDTH 12.9 % (0-14.5); WHITE BLOOD COUNT 7.4 10*3/uL (4.8-10.8)
[2020-04-15 13:11] LABS: ACT PARTIAL THROMBO TIME 27.8 SECONDS (20.0-32.1)
[2020-04-15 13:16] LABS: ALBUMIN 4.5 gm/dl (3.1-4.5); ALKALINE PHOSPHATASE 113 U/L (45-117); BUN 5 mg/dl (7-24); CHLORIDE 100 mmol/L (98-107); CREATININE 0.84 mg/dL (0.70-1.30); LIPASE 72 U/L (73-393); POTASSIUM 3.4 mmol/L (3.5-5.1); SGOT/AST 108 IU/L (3-35); SGPT/ALT 87 U/L (12-78); SODIUM 134 mmol/L (136-145); TOTAL PROTEIN 7.7 gm/dL (6.4-8.2)
[2020-04-15 13:17] LABS: TROPONIN I < 0.015 ng/ml (<0.045)
[2020-04-15 13:33] VITALS: BP 130/86
== END 2020-04-15 16:14 | disposition left against medical advice (07) ==
LOC: ED 12:07
PROVIDERS: Emergency Medicine
DX: R06.00 Dyspnea, unspecified (principal); R07.9 Chest pain, unspecified; F17.200 Nicotine dependence, unspecified, uncomplicated

== ENCOUNTER 2020-04-26 23:54 | Emergency (ER) | payer OTHER ==
[~2020-04-26] VITALS: Ht 172.7 cm; Wt 54.4 kg
[2020-04-27 00:14] VITALS: BP 136/93
== END 2020-04-27 04:37 | disposition home or self-care (01) ==
LOC: ED 23:54
DX: S16.1XXA Strain of muscle, fascia and tendon at neck level, initial encounter (principal); F17.210 Nicotine dependence, cigarettes, uncomplicated; X58.XXXA Exposure to other specified factors, initial encounter; Y93.89 Activity, other specified; Y92.89 Other specified places as the place of occurrence of the external cause; Y99.8 Other external cause status

== ENCOUNTER 2020-05-02 17:02 | Emergency (ER) | payer OTHER ==
[~2020-05-02] VITALS: Ht 175.2 cm; Wt 54.4 kg
[2020-05-02 17:18] VITALS: BP 136/94
[2020-05-02 20:11] LABS: BASO % 0.4 % (0.0-1.0); EOS # 0.2 10*3/uL (0.0-0.4); HEMATOCRIT 45.6 % (42.0-52.0); LYMPH # 1.6 10*3/uL (1.3-4.4); LYMPH % 21.3 % (27.0-41.0); MEAN CELL VOLUME 93.4 fl (80.0-94.0); MEAN CORPUSCULAR HGB 31.4 pg (27.0-31.0); MEAN CORPUSCULAR HGB CONC 33.6 g/dl (33.0-37.0); MEAN PLATELET VOLUME 11.2 fl (9.6-12.3); MONO # 0.7 10*3/uL (0.1-1.0); MONO % 8.9 % (3.0-9.0); NEUT % 67.3 % (47.0-73.0); PLATELET COUNT AUTOMATED 186 10*3/uL (130-400); RED BLOOD COUNT 4.88 10*6/uL (4.50-5.90); RED CELL DISTRI WIDTH 13.7 % (0-14.5); WHITE BLOOD COUNT 7.5 10*3/uL (4.8-10.8)
[2020-05-02 20:26] LABS: ALBUMIN 4.3 gm/dl (3.1-4.5); ALKALINE PHOSPHATASE 132 U/L (45-117); BUN 7 mg/dl (7-24); CHLORIDE 105 mmol/L (98-107); CREATININE 0.94 mg/dL (0.70-1.30); POTASSIUM 3.9 mmol/L (3.5-5.1); SGOT/AST 159 IU/L (3-35); SGPT/ALT 150 U/L (12-78); SODIUM 138 mmol/L (136-145)
[2020-05-02 21:24] LABS: URINE AMPHETAMINES < 1000 (1000ng/ml); URINE BARBITURATES < 200 (200ng/ml); URINE BENZODIAZEPINES < 200 (200ng/ml); URINE CANNABINOIDS (THC) > 50 (50ng/ml); URINE COCAINE < 300 (300ng/ml); URINE METHADONE < 300 (300ng/ml); URINE OPIATES < 300 (300ng/ml); URINE PHENCYCLIDINE < 25 (25ng/ml)
== END 2020-05-02 21:29 | disposition left against medical advice (07) ==
LOC: ED 17:02
PROVIDERS: Nurse Practitioner Family
DX: M54.9 Dorsalgia, unspecified (principal); F17.200 Nicotine dependence, unspecified, uncomplicated

== ENCOUNTER 2020-05-03 00:27 | Emergency (ER) | payer OTHER ==
[~2020-05-03] VITALS: Ht 200.6 cm; Wt 65.8 kg
[2020-05-03 00:39] VITALS: BP 122/80
== END 2020-05-03 00:58 | disposition left against medical advice (07) ==
LOC: ED 00:27
DX: M54.2 Cervicalgia (principal); Z53.21 Procedure and treatment not carried out due to patient leaving prior to being seen by health care provider

== ENCOUNTER 2020-05-03 19:49 | Emergency (ER) | payer OTHER ==
[~2020-05-03] VITALS: Ht 175.2 cm; Wt 52.2 kg
[2020-05-03 20:00] VITALS: BP 144/92
== END 2020-05-03 21:40 | disposition home or self-care (01) ==
LOC: ED 19:49
DX: R06.02 Shortness of breath (principal); F17.200 Nicotine dependence, unspecified, uncomplicated; F12.10 Cannabis abuse, uncomplicated; Z79.899 Other long term (current) drug therapy

== ENCOUNTER 2022-12-28 17:33 | Emergency (ER) | payer OTHER ==
[~2022-12-28] VITALS: Ht 175.2 cm; Wt 56.7 kg
[2022-12-28 17:42] VITALS: BP 118/70
[2022-12-28] MEDS ORDERED: AMOX-CLAV 875-1 EACH PO (18:12)
== END 2022-12-28 20:28 | disposition home or self-care (01) ==
LOC: ED 17:33
DX: K08.89 Other specified disorders of teeth and supporting structures (principal); Z88.8 Allergy status to other drugs, medicaments and biological substances; Z98.890 Other specified postprocedural states; F10.10 Alcohol abuse, uncomplicated; F14.90 Cocaine use, unspecified, uncomplicated; F17.290 Nicotine dependence, other tobacco product, uncomplicated

== ENCOUNTER 2023-01-24 00:05 | Emergency (ER) | payer OTHER ==
[~2023-01-24] VITALS: Ht 175.2 cm; Wt 56.7 kg
[~2023-01-24 00:05] MED LIST changes: +AMOX-CLAV 875-1 EACH PO
[2023-01-24 00:18] VITALS: BP 152/98
[2023-01-24] MEDS ORDERED: OCUFLOX 5 ML5 ML OP (01:25)
== END 2023-01-24 01:55 | disposition home or self-care (01) ==
LOC: ED 00:05
DX: H10.9 Unspecified conjunctivitis (principal); F32.A Depression, unspecified; F41.9 Anxiety disorder, unspecified; Z88.8 Allergy status to other drugs, medicaments and biological substances; Z98.890 Other specified postprocedural states; F10.10 Alcohol abuse, uncomplicated; F12.90 Cannabis use, unspecified, uncomplicated; F17.290 Nicotine dependence, other tobacco product, uncomplicated

== ENCOUNTER 2023-02-24 23:22 | Emergency (ER) | payer OTHER ==
[~2023-02-24] VITALS: Ht 175.2 cm; Wt 54.4 kg
[~2023-02-24 23:22] MED LIST changes: +OCUFLOX 5 ML5 ML OP
[2023-02-24 23:27] VITALS: BP 122/82
[2023-02-24] MEDS ORDERED: METHOCARBAMOL500 M1 PO (23:38)
[2023-02-24] MEDS ORDERED: NAPROXEN250 MG PO (23:38)
== END 2023-02-24 23:39 | disposition home or self-care (01) ==
LOC: ED 23:22
DX: S29.012A Strain of muscle and tendon of back wall of thorax, initial encounter (principal); F32.A Depression, unspecified; F41.9 Anxiety disorder, unspecified; Z88.8 Allergy status to other drugs, medicaments and biological substances; F10.10 Alcohol abuse, uncomplicated; F12.10 Cannabis abuse, uncomplicated; F17.200 Nicotine dependence, unspecified, uncomplicated; X50.0XXA Overexertion from strenuous movement or load, initial encounter; Y93.89 Activity, other specified; Y92.009 Unspecified place in unspecified non-institutional (private) residence as the place of occurrence of the external cause; Y99.0 Civilian activity done for income or pay